=== PATIENT | female | born 2000 | race Caucasian/White ===

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

== ENCOUNTER 2019-08-11 23:30 | Emergency (ER) | payer OTHER ==
[~2019-08-11] VITALS: Ht 157.5 cm; Wt 63.5 kg
[2019-08-12] MEDS ORDERED: AMIT10 (03:18)
[2019-08-12] MEDS ORDERED: PROM25 (03:18)
[2019-08-12] MEDS ORDERED: Esgic Tablet1 EACH (03:20)
== END 2019-08-12 03:53 | disposition home or self-care (01) ==
LOC: ER 23:30
DX: G43.909 Migraine, unspecified, not intractable, without status migrainosus (principal)
CPT/HCPCS: 36415; 96374; 96375; 99283-25; J1100; J1200; J1885; J2765

== ENCOUNTER 2020-04-28 17:20 | Emergency (ER) | payer OTHER ==
[~2020-04-28] VITALS: Ht 154.9 cm; Wt 81.7 kg
[~2020-04-28 17:20] MED LIST changes: +AMIT10; +Esgic Tablet1 EACH; +PROM25
[2020-04-28 18:24] LABS: BASOPHILS ABSOLUTE AUTO 0.04 K/mm3 (0.00-0.23); BASOPHILS PERCENT AUTO 0 % (0-2); EOSINOPHILS PERCENT AUTO 0 % (0-6); Hemoglobin 11.5 g/dL (11.5-16.0); IMMATURE GRAN ABSOLUTE AUTO 0.06 K/mm3 (0.00-0.10); IMMATURE GRAN PERCENT AUTO 0 % (0-1); LYMPHOCYTES ABSOLUTE AUTO 1.42 K/mm3 (0.84-5.20); LYMPHOCYTES PERCENT AUTO 10 % (21-46); MONOCYTES ABSOLUTE AUTO 1.09 K/mm3 (0.16-1.47); MONOCYTES PERCENT AUTO 8 % (4-13); Mean Corpuscular HGB Conc 33.8 g/dL (31.5-36.5); Mean Corpuscular Volume 92 fL (80-100); NEUTROPHILS ABSOLUTE AUTO 11.03 K/mm3 (1.96-9.15); NEUTROPHILS PERCENT AUTO 81 % (41-73); Platelet Count 215 K/mm3 (150-400); RDW Coefficient Variation 12.4 % (11.7-14.2); RDW Standard Deviation 40.6 fL (35.1-46.3); Red Blood Cell Count 3.71 M/mm3 (3.80-5.20); White Blood Cell Count 13.64 K/mm3 (4.00-11.30)
[2020-04-28 18:43] LABS: Alanine Aminotransfer (ALT/SGP 16 U/L (12-78); Albumin, Blood 2.9 g/dL (3.4-5.0); Albumin/Globulin Ratio 0.7 (0.8-1.8); Alk Phos 64 U/L (50-136); Anion Gap 8 mmol/L (6-16); Aspartate Aminotrans (AST/SGOT 13 U/L (12-37); Bilirubin, Total 0.4 mg/dL (0.1-1.0); Blood Urea Nitrogen 7 mg/dL (8-24); Bun/Creatinine Ratio 11.4 (12.0-20.0); CO2, Blood 24 mmol/L (21-32); Calcium, Blood 9.1 mg/dL (8.5-10.1); Chloride, Blood 108 mmol/L (98-108); Creatinine, Blood 0.61 mg/dL (0.40-1.00); Globulin, Blood 4.1 g/dL (2.2-4.0); Glomerular Filtration Rate >60 (60-); Glucose, Blood 83 mg/dL (70-99); Sodium, Blood 140 mmol/L (136-145)
[2020-04-28 20:38] LABS: Source, Urine Clean Catch
[2020-04-28 20:45] LABS: Appearance, Urine Cloudy (Clear); Bilirubin, Urine Neg (Neg); Blood, Urine 1+ (Neg); Color, Urine Yellow (P-Yellow); Glucose Qualitative, Urine Neg (Neg); Ketones, Urine Neg (Neg); Leukocyte Esterase, Urine 3+ (Neg); Nitrite, Urine Neg (Neg); Protein, Urine Neg (Neg); Urobilinogen, Urine NORM (Normal)
[2020-04-28 20:51] LABS: White Blood Cells, Urine 25-50 /hpf (0-5)
[2020-04-28 20:52] LABS: Bacteria Mod /hpf; Red Blood Cells, Urine 0-2 /hpf (0-2)
[2020-04-28 20:53] LABS: Squamous Epithelial Cells Many /hpf (Few)
== END 2020-04-28 21:40 | disposition home or self-care (01) ==
LOC: ER 17:20
PROVIDERS: Emergency Medicine
DX: O99.891 Other specified diseases and conditions complicating pregnancy (principal); R51.9 Headache, unspecified; Z3A.26 26 weeks gestation of pregnancy; Z79.899 Other long term (current) drug therapy
CPT/HCPCS: 36415; 80053; 81001; 85025; 87086; 99284

== ENCOUNTER 2020-08-06 06:18 | Inpatient (IN) | payer OTHER ==
[~2020-08-06] VITALS: Ht 157.5 cm; Wt 203.8 kg
--- NOTE | 2020-08-06 07:05 | NUR ---
CALLED DR PITTS PER Nancy THOMASON WITH NO ANSWER THEN SENT TEXT WAITED 10 MIN THEN A COURTNEY CALLED CELL WITH NO ANSWER THEN TEXTED, 07 DR PITTS CALLED BACK, REQUESTED FOR HER TO COME IN FOR DELIVERY UNSURE OF PRESENTINF PART,
[2020-08-06 07:24] LABS: BASOPHILS ABSOLUTE AUTO 0.04 K/mm3 (0.00-0.23); BASOPHILS PERCENT AUTO 0 % (0-2); EOSINOPHILS PERCENT AUTO 0 % (0-6); Hemoglobin 12.1 g/dL (11.5-16.0); IMMATURE GRAN PERCENT AUTO 1 % (0-1); LYMPHOCYTES ABSOLUTE AUTO 2.13 K/mm3 (0.84-5.20); LYMPHOCYTES PERCENT AUTO 18 % (21-46); MONOCYTES ABSOLUTE AUTO 0.87 K/mm3 (0.16-1.47); MONOCYTES PERCENT AUTO 7 % (4-13); Mean Corpuscular HGB 29.2 pg (26.0-34.0); Mean Corpuscular HGB Conc 33.6 g/dL (31.5-36.5); Mean Corpuscular Volume 87 fL (80-100); Mean Platelet Volume 12.3 fL (9.1-12.4); NEUTROPHILS ABSOLUTE AUTO 8.97 K/mm3 (1.96-9.15); NEUTROPHILS PERCENT AUTO 74 % (41-73); Platelet Count 230 K/mm3 (150-400); RDW Standard Deviation 40.8 fL (35.1-46.3); Red Blood Cell Count 4.15 M/mm3 (3.80-5.20); White Blood Cell Count 12.11 K/mm3 (4.00-11.30)
[2020-08-06 07:26] LABS: Influenza A, PCR NEGATIVE (NEGATIVE); Influenza B, PCR NEGATIVE (NEGATIVE); Resp Syncytial Virus, PCR NEGATIVE (NEGATIVE); SARS-Cov-2 (COVID-19) PCR, MMC NEGATIVE (NEGATIVE)
--- NOTE | 2020-08-06 17:07 | NUR ---
RN/LC ROUNDED TO HELP W/ . INSTRUCT/DEMO WIDENING LATCH, CORRECT POSITIONING AND NIPPLE SHAPE AFTER FEEDS. NB NOT SHOWING ANY INTEREST IN LATCHING. INSTRUCT/DEMO HAND EXPRESSION OF COLOSTRUM. ABLE TO GET 15 DROPS OF COLOSTRUM TO NB. REVIEWED GUIDE TO BOOKLET W/ PT ON WHAT TO EXPECT DURING THE FIRST WEEK OF LIFE, SUPPLY AND DEMAND OF BREASTMILK AND SIGNS OF A GOOD AND BAD LATCH. PT VERBALIZED UNDERSTANDING. WILL ATTEMPT TO ROUND AGAIN IN THE MORNING.
[2020-08-07 05:19] LABS: BASOPHILS ABSOLUTE AUTO 0.05 K/mm3 (0.00-0.23); BASOPHILS PERCENT AUTO 0 % (0-2); EOSINOPHILS PERCENT AUTO 0 % (0-6); Hematocrit 35.5 % (33.0-51.0); Hemoglobin 11.8 g/dL (11.5-16.0); IMMATURE GRAN ABSOLUTE AUTO 0.06 K/mm3 (0.00-0.10); IMMATURE GRAN PERCENT AUTO 1 % (0-1); LYMPHOCYTES PERCENT AUTO 21 % (21-46); MONOCYTES ABSOLUTE AUTO 1.05 K/mm3 (0.16-1.47); MONOCYTES PERCENT AUTO 8 % (4-13); Mean Corpuscular HGB 29.9 pg (26.0-34.0); Mean Corpuscular HGB Conc 33.2 g/dL (31.5-36.5); Mean Corpuscular Volume 90 fL (80-100); NEUTROPHILS ABSOLUTE AUTO 8.93 K/mm3 (1.96-9.15); NEUTROPHILS PERCENT AUTO 70 % (41-73); Platelet Count 192 K/mm3 (150-400); RDW Coefficient Variation 13.2 % (11.7-14.2); RDW Standard Deviation 42.5 fL (35.1-46.3); Red Blood Cell Count 3.95 M/mm3 (3.80-5.20); White Blood Cell Count 12.69 K/mm3 (4.00-11.30)
--- NOTE | 2020-08-07 08:42 | NUR ---
RN/LC ROUNDED TO HELP W/ . PT STATES WENT WELL THROUGH THE NIGHT. PT DID NOT USE SHIELD, WAS ABLE TO LATCH DIRECTLY TO THE BREAST W/ EACH FEED. REITERATED W/ PT ABOUT CORRECT POSITIONING, LATCHING, NIPPLE SHAPE AFTER FEEDS, FREQUENCY OF FEEDS, AND CLUSTER FEEDING. PT VERBALIZED UNDERSTANDING, DENIES ANY FURTHER QUESTIONS OR CONCERNS. FURTHER LC OFFERED IN CLINIC.
--- NOTE | 2020-08-07 14:24 | NUR ---
PT D/C WARD WITH NB, BANDS MATCHED. D/C INSTRUCTIONS REVIEWED AND QUESTIONS ANSWERED. PT INSTRUCTED TO CALL PROVIDERS OFFICE TO SCHDULE PP VISIT AND TO RETURN TO [facility] FOR [facility] APPOINTMENT.
== END 2020-08-07 14:15 | disposition home or self-care (01) | DRG 807 ==
LOC: OBS 06:18 → BC 06:20 → OBS 06:21 → BC 06:22
PROVIDERS: ADMIT Obstetrics & Gynecology
PROC: 10E0XZZ Delivery of Products of Conception, External Approach (ICD-10-PCS; principal; 2020-08-06)
DX: O70.0 First degree perineal laceration during delivery (principal); Z37.0 Single live birth; Z28.82 Immunization not carried out because of caregiver refusal; Z3A.39 39 weeks gestation of pregnancy
CPT/HCPCS: 0241U; 36415; 85025; 86850; 86900; 86901; A9270; J0290; J1885; J2590; J3010; J7120

== ENCOUNTER 2022-08-26 21:48 | Emergency (ER) | payer OTHER ==
[~2022-08-26] VITALS: Ht 154.9 cm; Wt 83.5 kg
== END 2022-08-26 23:20 | disposition home or self-care (01) ==
LOC: EOR 21:48 → ER 21:48 → BC 21:52 → EOR 21:52 → ER 21:52 → OBS 21:52 → EDSTATUS 22:31 → ER 23:20
DX: O99.891 Other specified diseases and conditions complicating pregnancy (principal); S86.111A Strain of other muscle(s) and tendon(s) of posterior muscle group at lower leg level, right leg, initial encounter; Z3A.30 30 weeks gestation of pregnancy; X58.XXXA Exposure to other specified factors, initial encounter
CPT/HCPCS: 59025; 81003; 93971; 99214; 99284-25

== ENCOUNTER 2022-10-29 15:45 | Inpatient (IN) | payer OTHER ==
[~2022-10-29] VITALS: Ht 154.9 cm; Wt 89.0 kg
[2022-10-29] VITALS (10 sets, daily range): BP systolic 123–144; BP diastolic 60–96
[2022-10-29 16:20] LABS: BASOPHILS ABSOLUTE AUTO 0.03 K/mm3 (0.00-0.23); BASOPHILS PERCENT AUTO 0 % (0-2); EOSINOPHILS ABSOLUTE AUTO 0.01 K/mm3 (0.00-0.68); EOSINOPHILS PERCENT AUTO 0 % (0-6); Hematocrit 32.4 % (33.0-51.0); Hemoglobin 10.6 g/dL (11.5-16.0); IMMATURE GRAN ABSOLUTE AUTO 0.06 K/mm3 (0.00-0.10); IMMATURE GRAN PERCENT AUTO 1 % (0-1); LYMPHOCYTES ABSOLUTE AUTO 0.95 K/mm3 (0.84-5.20); LYMPHOCYTES PERCENT AUTO 9 % (21-46); MONOCYTES ABSOLUTE AUTO 0.81 K/mm3 (0.16-1.47); MONOCYTES PERCENT AUTO 8 % (4-13); Mean Corpuscular HGB 27.3 pg (26.0-34.0); Mean Corpuscular HGB Conc 32.7 g/dL (31.5-36.5); Mean Corpuscular Volume 84 fL (80-100); Mean Platelet Volume 12.8 fL (9.1-12.4); NEUTROPHILS ABSOLUTE AUTO 8.29 K/mm3 (1.96-9.15); NEUTROPHILS PERCENT AUTO 82 % (41-73); Platelet Count 181 K/mm3 (150-400); RDW Coefficient Variation 13.2 % (11.7-14.2); RDW Standard Deviation 39.7 fL (35.1-46.3); Red Blood Cell Count 3.88 M/mm3 (3.80-5.20); White Blood Cell Count 10.15 K/mm3 (4.00-11.30)
[2022-10-29] MEDS ORDERED: PRENA1 TRUE CO1 EAC1 PO (16:27)
[2022-10-30] VITALS (8 sets, daily range): BP systolic 119–136; BP diastolic 61–88
[2022-10-30 06:05] LABS: BASOPHILS ABSOLUTE AUTO 0.02 K/mm3 (0.00-0.23); BASOPHILS PERCENT AUTO 0 % (0-2); EOSINOPHILS PERCENT AUTO 0 % (0-6); Hematocrit 30.1 % (33.0-51.0); Hemoglobin 9.8 g/dL (11.5-16.0); IMMATURE GRAN ABSOLUTE AUTO 0.07 K/mm3 (0.00-0.10); IMMATURE GRAN PERCENT AUTO 1 % (0-1); LYMPHOCYTES ABSOLUTE AUTO 1.25 K/mm3 (0.84-5.20); LYMPHOCYTES PERCENT AUTO 11 % (21-46); MONOCYTES ABSOLUTE AUTO 1.19 K/mm3 (0.16-1.47); MONOCYTES PERCENT AUTO 11 % (4-13); Mean Corpuscular HGB 27.1 pg (26.0-34.0); Mean Corpuscular HGB Conc 32.6 g/dL (31.5-36.5); Mean Corpuscular Volume 83 fL (80-100); NEUTROPHILS ABSOLUTE AUTO 8.66 K/mm3 (1.96-9.15); NEUTROPHILS PERCENT AUTO 77 % (41-73); Platelet Count 176 K/mm3 (150-400); RDW Coefficient Variation 13.1 % (11.7-14.2); RDW Standard Deviation 39.7 fL (35.1-46.3); Red Blood Cell Count 3.62 M/mm3 (3.80-5.20); White Blood Cell Count 11.19 K/mm3 (4.00-11.30)
== END 2022-10-30 23:54 | disposition home or self-care (01) | DRG 807 ==
LOC: OBS 15:45 → BC 15:45 → OBS 15:57 → BC 15:58
PROVIDERS: ADMIT Obstetrics & Gynecology
PROC: 10E0XZZ Delivery of Products of Conception, External Approach (ICD-10-PCS; principal; 2022-10-29)
PROC: 0HQ9XZZ Repair Perineum Skin, External Approach (ICD-10-PCS; 2022-10-29)
DX: O70.0 First degree perineal laceration during delivery (principal); Z37.0 Single live birth; Z3A.38 38 weeks gestation of pregnancy
CPT/HCPCS: 36415; 85025; 86850; 86900; 86901; A9270; J0290; J1885; J2405; J2590; J7120

== ENCOUNTER → 2023-03-16 | Outpatient (CLI) | payer OTHER ==
[~2023-03-16] MED LIST changes: +PRENA1 TRUE CO1 EAC1 PO
[2023-03-16 09:55] LABS: BASOPHILS ABSOLUTE AUTO 0.03 K/mm3 (0.00-0.23); BASOPHILS PERCENT AUTO 0 % (0-2); EOSINOPHILS PERCENT AUTO 0 % (0-6); IMMATURE GRAN ABSOLUTE AUTO 0.02 K/mm3 (0.00-0.10); IMMATURE GRAN PERCENT AUTO 0 % (0-1); LYMPHOCYTES ABSOLUTE AUTO 1.13 K/mm3 (0.84-5.20); LYMPHOCYTES PERCENT AUTO 11 % (21-46); MONOCYTES ABSOLUTE AUTO 1.41 K/mm3 (0.16-1.47); MONOCYTES PERCENT AUTO 14 % (4-13); Mean Corpuscular HGB 29.1 pg (26.0-34.0); Mean Corpuscular HGB Conc 33.3 g/dL (31.5-36.5); Mean Corpuscular Volume 87 fL (80-100); Mean Platelet Volume 10.6 fL (9.1-12.4); NEUTROPHILS ABSOLUTE AUTO 7.48 K/mm3 (1.96-9.15); NEUTROPHILS PERCENT AUTO 74 % (41-73); Platelet Count 193 K/mm3 (150-400); RDW Coefficient Variation 12.7 % (11.7-14.2); Red Blood Cell Count 4.46 M/mm3 (3.80-5.20); White Blood Cell Count 10.07 K/mm3 (4.00-11.30)
[2023-03-16 10:09] LABS: Albumin, Blood 3.8 g/dL (3.4-5.0); Albumin/Globulin Ratio 0.9 (0.8-1.8); Bilirubin, Total 0.5 mg/dL (0.1-1.0); Bun/Creatinine Ratio 12.9 (12.0-20.0); Calcium, Blood 9.7 mg/dL (8.5-10.1); Creatinine, Blood 0.85 mg/dL (0.40-1.00); Globulin, Blood 4.2 g/dL (2.2-4.0); Potassium, Blood 3.7 mmol/L (3.5-5.5)
== END | disposition home or self-care (01) ==
LOC: LAB SHORT 09:20 → LAB 09:20
PROVIDERS: Physician Assistant
DX: R82.81 Pyuria (principal); R10.9 Unspecified abdominal pain
CPT/HCPCS: 80053; 83690; 85025; 85379; 87086

== ENCOUNTER 2023-06-10 18:39 | Emergency (ER) | payer OTHER ==
[~2023-06-10] VITALS: Ht 154.9 cm; Wt 76.2 kg
[2023-06-10 18:58] VITALS: BP 121/73
[2023-06-10] MEDS ORDERED: DICLOXACILLIN500 M1 PO (19:39)
== END 2023-06-10 20:00 | disposition home or self-care (01) ==
LOC: ER 18:39
DX: N61.0 Mastitis without abscess (principal); Z79.899 Other long term (current) drug therapy
CPT/HCPCS: 99282; A9270

== ENCOUNTER 2024-03-08 19:50 | Emergency (ER) | payer OTHER ==
[~2024-03-08] VITALS: Ht 154.9 cm; Wt 83.9 kg
[~2024-03-08 19:50] MED LIST changes: +DICLOXACILLIN500 M1 PO
[2024-03-08 19:54] VITALS: BP 127/105
== END 2024-03-08 22:31 | disposition home or self-care (01) ==
LOC: ER 19:50
DX: M79.675 Pain in left toe(s) (principal); G43.909 Migraine, unspecified, not intractable, without status migrainosus; Z79.899 Other long term (current) drug therapy
CPT/HCPCS: 73620; 99283-25

== ENCOUNTER 2024-09-27 03:55 | Inpatient (IN) | payer OTHER ==
[~2024-09-27] VITALS: Ht 154.9 cm; Wt 92.0 kg
[2024-09-27] VITALS (12 sets, daily range): BP systolic 107–142; BP diastolic 58–91
[2024-09-27] MEDS ORDERED: Acetaminophen 500 MG Tab PO PRN (04:20)
[2024-09-27] MEDS ORDERED: Ondansetron HCl 2 MG / ML 2ML Vial IV PRN (04:20)
[2024-09-27] MEDS ORDERED: OXYTOCIN/RINGER'S LACTATE 500 ML IV PRN (04:20)
[2024-09-27] MEDS ORDERED: Misoprostol 200 MCG Tab BC PRN (04:20)
[2024-09-27] MEDS ORDERED: Methylergonovine Maleate 0.2MG / ML 1ML Amp IM PRN ×2 (04:20→06:10)
[2024-09-27] MEDS ORDERED: Tranexamic Acid 100 ML IV SCH (04:20)
[2024-09-27] MEDS ORDERED: Misoprostol 200 MCG Tab PR PRN ×2 (04:20→06:15)
[2024-09-27] MEDS ORDERED: Carboprost Tromethamine 250 MCG/ML 1ML Amp IM PRN (04:20)
[2024-09-27] MEDS ORDERED: Oxytocin 10 Unit / ML Vial IM PRN (04:20)
[2024-09-27] MEDS ORDERED: Penicillin G Potassium 5,000,000 UNITS in NS 250 ML IV ONE (04:20)
[2024-09-27] MEDS ORDERED: Lactated Ringer's 1,000 ML IV PRN ×3 (04:20→05:30)
[2024-09-27] MEDS ORDERED: Calcium Carbonate 500 MG Tab Chew PO PRN (04:25)
[2024-09-27] MEDS ORDERED: Lactated Ringer's 1,000 ML IV ONE (04:26)
[2024-09-27] MEDS ORDERED: OXYTOCIN/RINGER'S LACTATE 500 ML IV ONE (04:26)
[2024-09-27 04:55] LABS: Hematocrit 33.2 % (33.0-51.0); Hemoglobin 10.5 g/dL (11.5-16.0); Mean Corpuscular HGB 25.8 pg (26.0-34.0); Mean Corpuscular HGB Conc 31.6 g/dL (31.5-36.5); Mean Corpuscular Volume 82 fL (80-100); Mean Platelet Volume 12.3 fL (9.1-12.4); Platelet Count 223 K/mm3 (150-400); RDW Standard Deviation 41.1 fL (35.1-46.3); Red Blood Cell Count 4.07 M/mm3 (3.80-5.20)
[2024-09-27 04:56] LABS: White Blood Cell Count 9.03 K/mm3 (4.00-11.30)
[2024-09-27 05:19] LABS: BAND PERCENT MAN 1 % (0-8); BASOPHILS PERCENT MAN 0 % (0-2); EOSINOPHILS PERCENT MAN 0 % (0-6); LYMPHOCYTES ABSOLUTE MAN 2.16 K/mm3 (0.84-5.20); LYMPHOCYTES PERCENT MAN 24 % (21-46); MONOCYTES ABSOLUTE MAN 0.72 K/mm3 (0.16-1.47); MONOCYTES PERCENT MAN 8 % (4-13); MYELOCYTE ABSOLUTE MAN 0.09 K/mm3 (0.00-0.00); MYELOCYTE PERCENT MAN 1 % (0-0); NEUTROPHILS ABSOLUTE MAN 6.05 K/mm3 (1.96-9.15); SEG NEUTROPHILS PERCENT MAN 66 % (41-73); TOTAL CELLS COUNTED 100
[2024-09-27] MEDS ORDERED: FentaNYL 2mcg/ml-Bup 0.1% Epd 250 ML EPI PRN (05:25)
[2024-09-27] MEDS ORDERED: ePHEDrine Sulfate 50 MG/ML 1ML Injection XX PRN (05:25)
[2024-09-27] MEDS ORDERED: Ketorolac Tromethamine 30mg Vial IV PRN (05:50)
[2024-09-27] MEDS ORDERED: Benzocaine Topical Anesthetic Spray 60GM TOP PRN (06:05)
[2024-09-27] MEDS ORDERED: OXYTOCIN/RINGER'S LACTATE 500 ML IV SCH (06:10)
[2024-09-27] MEDS ORDERED: Witch Hazel/Glycerin PADS TOP PRN (06:10)
[2024-09-27] MEDS ORDERED: Docusate Sodium 100 MG Cap PO PRN (06:10)
[2024-09-27] MEDS ORDERED: Acetaminophen 325 MG TABLET PO PRN (06:10)
[2024-09-27] MEDS ORDERED: Ibuprofen 400 MG Tab PO PRN (06:10)
[2024-09-27] MEDS ORDERED: Lanolin Cream TOP PRN (06:10)
[2024-09-27] MEDS ORDERED: Lactated Ringer's 1,000 ML IV SCH (06:15)
[2024-09-27] MEDS ORDERED: Penicillin G Potassium 2,500,000 UNITS in Dextrose 5% 100 ML IV SCH (08:30)
[2024-09-27] MEDS ORDERED: Prenatal Vit/FE Fumarate/FA 1 Tab PO SCH (09:00)
[2024-09-27] MEDS ORDERED: Ketorolac Tromethamine 30mg Vial IV SCH (12:00)
[2024-09-28 01:18] VITALS: BP 136/76
[2024-09-28 05:26] VITALS: BP 118/64
[2024-09-28 06:06] LABS: BASOPHILS ABSOLUTE AUTO 0.05 K/mm3 (0.00-0.23); BASOPHILS PERCENT AUTO 1 % (0-2); EOSINOPHILS PERCENT AUTO 0 % (0-6); Hematocrit 30.2 % (33.0-51.0); Hemoglobin 9.6 g/dL (11.5-16.0); IMMATURE GRAN ABSOLUTE AUTO 0.07 K/mm3 (0.00-0.10); IMMATURE GRAN PERCENT AUTO 1 % (0-1); LYMPHOCYTES ABSOLUTE AUTO 2.47 K/mm3 (0.84-5.20); LYMPHOCYTES PERCENT AUTO 25 % (21-46); MONOCYTES ABSOLUTE AUTO 1.08 K/mm3 (0.16-1.47); MONOCYTES PERCENT AUTO 11 % (4-13); Mean Corpuscular HGB 26.5 pg (26.0-34.0); Mean Corpuscular HGB Conc 31.8 g/dL (31.5-36.5); Mean Corpuscular Volume 83 fL (80-100); Mean Platelet Volume 12.3 fL (9.1-12.4); NEUTROPHILS ABSOLUTE AUTO 6.11 K/mm3 (1.96-9.15); NEUTROPHILS PERCENT AUTO 63 % (41-73); Platelet Count 191 K/mm3 (150-400); RDW Coefficient Variation 14.1 % (11.7-14.2); RDW Standard Deviation 42.5 fL (35.1-46.3); Red Blood Cell Count 3.62 M/mm3 (3.80-5.20); White Blood Cell Count 9.78 K/mm3 (4.00-11.30)
[2024-09-28 09:13] VITALS: BP 125/84
[2024-09-28 11:57] VITALS: BP 118/77
== END 2024-09-28 12:13 | disposition home or self-care (01) | DRG 807 ==
LOC: OBS 03:55 → BC 04:07 → OBS 04:21 → BC 04:23
PROVIDERS: ADMIT Obstetrics & Gynecology
PROC: 10E0XZZ Delivery of Products of Conception, External Approach (ICD-10-PCS; principal; 2024-09-27)
DX: O62.3 Precipitate labor (principal); Z37.0 Single live birth; Z3A.37 37 weeks gestation of pregnancy
CPT/HCPCS: 36415; 85025; 86850; 86900; 86901; 99214; A9270; J1885; J2540; J2590; J7050; J7120